=== PATIENT | female | born 1985 | race Caucasian/White ===

== ENCOUNTER 2016-09-27 17:41 | Inpatient (IN) | payer OTHER ==
[~2016-09-27] VITALS: Ht 170.2 cm; Wt 65.4 kg
[2016-09-27 18:17] LABS: HEMATOCRIT 34.9 % (36.0-46.0); MCH 24.1 PG (29.0-34.0); MCHC 30.9 G/DL (30.0-36.0); MCV 77.9 FL (83-99); MEAN PLAT.VOLUME 9.5 uM^3 (9.5-12.4); PLATELET COUNT 305 K/uL (156-360); RBC DIS.WIDTH-CV 18.1 % (11.8-14.6); RBC DIS.WIDTH-SD 50.4 % (39-53); RED BLOOD COUNT 4.48 M/uL (3.80-5.20); WHITE BLOOD COUNT 4.3 K/uL (4.1-10.2)
[2016-09-27 18:32] LABS: CHLORIDE 107 mEq/L (99-109); POTASSIUM 4.2 mEq/L (3.7-5.4); SODIUM 140 mEq/L (136-147)
[2016-09-27 18:34] LABS: GLUCOSE 105 mg/dL (70-99)
[2016-09-27 18:36] LABS: ANION GAP 10 MEQ/L (2-14)
[2016-09-27 18:39] LABS: GFR ESTIMATE (CALCULATED) > 59 mL/min/; UREA NITROGEN (BUN) 16 mg/dL (9-23)
[2016-09-27 19:44] LABS: CARBON DIOXIDE (BICARBONATE) 26.2 MEQ/L (20-31)
[2016-09-27 21:00] VITALS: BP 121/97
[2016-09-27 21:12] VITALS: BP 121/97
[2016-09-27 21:15] VITALS: BP 135/95
[2016-09-27 21:30] VITALS: BP 121/97
[2016-09-27 22:00] VITALS: BP 126/80
[2016-09-27 22:51] LABS: AMPHETAMINES QUANT VALUE 0 NG/ML; BARBITUATES QUANT VALUE 0 NG/ML; BENZODIAZEPINES, URINE SCREEN POSITIVE (200 ng/mL); MARIJUANA QUANT VALUE 0 NG/ML; OPIATES QUANTITATIVE VALUE 0 NG/ML; PHENCYCLIDINE QUANT VALUE 0 NG/ML
[2016-09-27 23:00] VITALS: BP 115/80
[2016-09-27 23:02] LABS: METH RESISTANT S AUREUS PCR NEGATIVE (NEGATIVE)
[2016-09-27 23:03] LABS: PROBE CHECK PASS; SPECIMEN PROCESSING CONTROL PASS
[2016-09-28] VITALS (23 sets, daily range): BP systolic 94–131; BP diastolic 46–81
[2016-09-28 06:26] LABS: HEMATOCRIT 30.6 % (36.0-46.0); MCH 24.1 PG (29.0-34.0); MCHC 30.1 G/DL (30.0-36.0); MCV 80.3 FL (83-99); MEAN PLAT.VOLUME 10.7 uM^3 (9.5-12.4); PLATELET COUNT 257 K/uL (156-360); RBC DIS.WIDTH-CV 18.1 % (11.8-14.6); RBC DIS.WIDTH-SD 52.5 % (39-53); RED BLOOD COUNT 3.81 M/uL (3.80-5.20); WHITE BLOOD COUNT 5.1 K/uL (4.1-10.2)
[2016-09-28 07:05] LABS: ANION GAP 10 MEQ/L (2-14); CHLORIDE 106 MEQ/L (99-109); GFR ESTIMATE (CALCULATED) > 59 mL/min/; MAGNESIUM 1.8 mg/dl (1.3-2.7); SAMPLE HEMOLYSIS CHECK 1; SAMPLE ICTERIC CHECK 0; SAMPLE LIPEMIA CHECK 0; SODIUM 136 MEQ/L (136-147); UREA NITROGEN (BUN) 15 mg/dL (9-23)
[2016-09-28 07:06] LABS: GLUCOSE 160 mg/dL (70-99); POTASSIUM 5.1 MEQ/L (3.7-5.4)
[2016-09-29] VITALS (7 sets, daily range): BP systolic 101–137; BP diastolic 62–85
[2016-09-29 06:22] LABS: HEMATOCRIT 29.2 % (36.0-46.0); MCH 25.1 PG (29.0-34.0); MCHC 30.8 G/DL (30.0-36.0); MCV 81.3 FL (83-99); MEAN PLAT.VOLUME 10.7 uM^3 (9.5-12.4); PLATELET COUNT 200 K/uL (156-360); RBC DIS.WIDTH-CV 18.5 % (11.8-14.6); RBC DIS.WIDTH-SD 54.5 % (39-53); RED BLOOD COUNT 3.59 M/uL (3.80-5.20); WHITE BLOOD COUNT 6.4 K/uL (4.1-10.2)
[2016-09-29 07:05] LABS: ANION GAP 10 MEQ/L (2-14); CHLORIDE 109 MEQ/L (99-109); GFR ESTIMATE (CALCULATED) > 59 mL/min/; MAGNESIUM 1.8 mg/dl (1.3-2.7); SAMPLE HEMOLYSIS CHECK 0; SAMPLE ICTERIC CHECK 0; SAMPLE LIPEMIA CHECK 0; SODIUM 141 MEQ/L (136-147); UREA NITROGEN (BUN) 15 mg/dL (9-23)
[2016-09-29 07:18] LABS: GLUCOSE 92 mg/dL (70-99); POTASSIUM 3.6 MEQ/L (3.7-5.4)
[2016-09-29] MEDS ORDERED: OXYCODONE HCL15 MG PO (15:41)
[2016-09-29] MEDS ORDERED: ALPRAZOLAM1 MG PO (15:41)
[2016-09-30 06:46] VITALS: BP 120/64
[2016-09-30 07:13] LABS: HEMATOCRIT 32.9 % (36.0-46.0); MCH 24.8 PG (29.0-34.0); MCHC 31.3 G/DL (30.0-36.0); MCV 79.3 FL (83-99); PLATELET COUNT 236 K/uL (156-360); RBC DIS.WIDTH-CV 18.2 % (11.8-14.6); RBC DIS.WIDTH-SD 52.2 % (39-53); RED BLOOD COUNT 4.15 M/uL (3.80-5.20)
[2016-09-30 07:37] LABS: ANION GAP 10 MEQ/L (2-14); CHLORIDE 105 MEQ/L (99-109); GFR ESTIMATE (CALCULATED) > 59 mL/min/; GLUCOSE 93 mg/dL (70-99); POTASSIUM 3.9 MEQ/L (3.7-5.4); SAMPLE HEMOLYSIS CHECK 0; SAMPLE ICTERIC CHECK 0; SAMPLE LIPEMIA CHECK 0; SODIUM 140 MEQ/L (136-147); UREA NITROGEN (BUN) 13 mg/dL (9-23)
[2016-09-30 15:04] VITALS: BP 123/69
[2016-09-30 23:01] VITALS: BP 120/78
[2016-10-01 06:57] LABS: HEMATOCRIT 32.4 % (36.0-46.0); MCH 24.4 PG (29.0-34.0); MCHC 31.2 G/DL (30.0-36.0); MCV 78.3 FL (83-99); MEAN PLAT.VOLUME 10.6 uM^3 (9.5-12.4); PLATELET COUNT 291 K/uL (156-360); RBC DIS.WIDTH-CV 17.9 % (11.8-14.6); RBC DIS.WIDTH-SD 50.9 % (39-53); RED BLOOD COUNT 4.14 M/uL (3.80-5.20); WHITE BLOOD COUNT 7.9 K/uL (4.1-10.2)
[2016-10-01 07:00] VITALS: BP 111/69
[2016-10-01 07:26] LABS: IRON 19 MCG/DL (35-150)
[2016-10-01 07:30] LABS: ANION GAP 12 MEQ/L (2-14); CHLORIDE 104 MEQ/L (99-109); GFR ESTIMATE (CALCULATED) > 59 mL/min/; POTASSIUM 4.6 MEQ/L (3.7-5.4); SAMPLE HEMOLYSIS CHECK 0; SAMPLE ICTERIC CHECK 0; SAMPLE LIPEMIA CHECK 0; SODIUM 137 MEQ/L (136-147); UREA NITROGEN (BUN) 16 mg/dL (9-23)
[2016-10-01 07:31] LABS: GLUCOSE 119 mg/dL (70-99)
[2016-10-01 08:16] LABS: FERRITIN 13 NG/ML (10-291)
[2016-10-01 09:10] LABS: MAGNESIUM 1.9 mg/dl (1.3-2.7)
[2016-10-01 15:10] VITALS: BP 114/72
[2016-10-01 23:41] VITALS: BP 124/71
[2016-10-02 06:50] VITALS: BP 113/72
[2016-10-02 09:00] LABS: HEMATOCRIT 37.7 % (36.0-46.0); MCH 24.2 PG (29.0-34.0); MCHC 30.5 G/DL (30.0-36.0); MCV 79.4 FL (83-99); MEAN PLAT.VOLUME 10.5 uM^3 (9.5-12.4); PLATELET COUNT 323 K/uL (156-360); RBC DIS.WIDTH-CV 17.9 % (11.8-14.6); RBC DIS.WIDTH-SD 51.7 % (39-53); RED BLOOD COUNT 4.75 M/uL (3.80-5.20); WHITE BLOOD COUNT 8.5 K/uL (4.1-10.2)
[2016-10-02 09:24] LABS: ANION GAP 15 MEQ/L (2-14); CHLORIDE 104 MEQ/L (99-109); GFR ESTIMATE (CALCULATED) > 59 mL/min/; POTASSIUM 4.4 MEQ/L (3.7-5.4); SAMPLE HEMOLYSIS CHECK 0; SAMPLE ICTERIC CHECK 0; SAMPLE LIPEMIA CHECK 0; SODIUM 137 MEQ/L (136-147); UREA NITROGEN (BUN) 21 mg/dL (9-23)
[2016-10-02 09:25] LABS: GLUCOSE 88 mg/dL (70-99)
[2016-10-02] MEDS ORDERED: PREDNISONE10 MG PO (09:29)
[2016-10-02] MEDS ORDERED: BENADRYL50 MG PO (09:29)
[2016-10-02] MEDS ORDERED: CYMBALTA20 MG PO (09:30)
== END 2016-10-02 17:24 | disposition home or self-care (01) | DRG 208 ==
LOC: EME 17:41 → EDOF 19:01 → 4WEST 19:01 → 5EAST 09-29 16:44
PROVIDERS: Emergency Medicine; Internal Medicine
PROC: 0BH18EZ Insertion of Endotracheal Airway into Trachea, Via Natural or Artificial Opening Endoscopic (ICD-10-PCS; principal; 2016-09-27)
PROC: 5A1935Z Respiratory Ventilation, Less than 24 Consecutive Hours (ICD-10-PCS; principal; 2016-09-27)
DX: J96.00 Acute respiratory failure, unspecified whether with hypoxia or hypercapnia (principal); D84.1 Defects in the complement system; F41.8 Other specified anxiety disorders; F32.89 Other specified depressive episodes; R49.0 Dysphonia; G89.29 Other chronic pain; D50.9 Iron deficiency anemia, unspecified
CPT/HCPCS: 71010; 80048; 80053; 80306 90; 82728; 82803; 83540; 83735; 84100; 84466; 85025; 85027; 86900; 86901; 87040; 87070; 87205; 87641; 94002; 94003; 94799; 99281; 99285; J1100; J1200; J1630; J1650; J2060; J2704; J2920; J2930; J7050; S0028